=== PATIENT | male | born 1930 | race Caucasian/White ===

== ENCOUNTER 2016-12-13 14:13 | Inpatient (IN) | payer OTHER ==
[~2016-12-13] VITALS: Ht 175.3 cm; Wt 69.5 kg
[2016-12-13 14:52] LABS: EOSINOPHIL (%) 0.7 % (0-5); EOSINOPHIL COUNT 0.1 K/uL (0-0.3); HEMATOCRIT 39.3 % (38.0-50.0); IMMATURE GRANULOCYTE (%) 0.1 % (0.0-0.7); IMMATURE GRANULOCYTE COUNT 0.1 K/uL; LYMPHOCYTE COUNT 0.9 K/uL (1.0-2.8); MCH 31.9 PG (29.0-34.0); MCHC 34.6 G/DL (30.0-36.0); MCV 92.3 FL (86-99); MEAN PLAT.VOLUME 10.7 uM^3 (9.0-12.4); MONOCYTE COUNT 0.5 K/uL (0-0.8); NEUTROPHIL (%) 81.9 % (45-76); NEUTROPHIL COUNT 6.6 K/uL (1.8-6.4); PLATELET COUNT 172 K/uL (156-360); RBC DIS.WIDTH-SD 45.7 % (39-53); RED BLOOD COUNT 4.26 M/uL (4.00-5.50)
[2016-12-13 15:04] LABS: CHLORIDE 98 mEq/L (99-109); POTASSIUM 4.7 mEq/L (3.7-5.4); SODIUM 133 mEq/L (136-147)
[2016-12-13 15:07] LABS: D-DIMER ELISA 0.54 mg/L FEU (< 0.57); GLUCOSE 141 mg/dL (70-99)
[2016-12-13 15:08] LABS: ANION GAP 11 MEQ/L (2-14)
[2016-12-13 15:09] LABS: TOTAL BILIRUBIN 0.7 mg/dL (0.0-1.0)
[2016-12-13 15:10] LABS: ALKALINE PHOSPHATASE 100 IU/L (3-129); GFR ESTIMATE (CALCULATED) > 59 mL/min/
[2016-12-13 15:11] LABS: UREA NITROGEN (BUN) 18 mg/dL (9-23)
[2016-12-13 15:21] LABS: TROP-I INTERPRETATION NEGATIVE; TROPONIN-I 0.01 ng/mL (0.0-0.30)
[2016-12-13] MEDS ORDERED: ASPIR 8181 M1 PO (16:03)
[2016-12-13] MEDS ORDERED: DAILY VITE1 EAC1 PO (16:04)
[2016-12-13] MEDS ORDERED: VITAMIN D2000 UNI1 PO (16:05)
[2016-12-13] MEDS ORDERED: ASCORBIC ACID500 M3 PO (16:05)
[2016-12-13] MEDS ORDERED: FISH OIL 11600 MG/5 PO (16:06)
[2016-12-13] MEDS ORDERED: VITAMIN E400 UNIT PO (16:06)
[2016-12-13] MEDS ORDERED: REFRESH TEARS15 ML BOTH EYES (16:07)
[2016-12-13 20:30] VITALS: BP 114/60
[2016-12-13 21:34] LABS: TROP-I INTERPRETATION NEGATIVE; TROPONIN-I 0.05 ng/mL (0.0-0.30)
[2016-12-13 23:36] VITALS: BP 78/44
[2016-12-13 23:45] VITALS: BP 80/52
[2016-12-14] VITALS (7 sets, daily range): BP systolic 105–149; BP diastolic 60–88
[2016-12-14 05:12] LABS: TROP-I INTERPRETATION NEGATIVE; TROPONIN-I 0.05 ng/mL (0.0-0.30)
[2016-12-14 08:23] LABS: EOSINOPHIL (%) 0.3 % (0-5); IMMATURE GRANULOCYTE (%) 0.2 % (0.0-0.7); LYMPHOCYTE COUNT 1.2 K/uL (1.0-2.8); MCH 31.4 PG (29.0-34.0); MCHC 34.7 G/DL (30.0-36.0); MCV 90.4 FL (86-99); MEAN PLAT.VOLUME 10.9 uM^3 (9.0-12.4); MONOCYTE (%) 12.5 % (3-12); MONOCYTE COUNT 1.2 K/uL (0-0.8); NEUTROPHIL (%) 74.4 % (45-76); NEUTROPHIL COUNT 7.2 K/uL (1.8-6.4); PLATELET COUNT 160 K/uL (156-360); RBC DIS.WIDTH-CV 13.8 % (11.8-14.6); RBC DIS.WIDTH-SD 45.5 % (39-53); RED BLOOD COUNT 3.76 M/uL (4.00-5.50); WHITE BLOOD COUNT 9.7 K/uL (4.1-10.2)
[2016-12-14 09:56] LABS: ANION GAP 7 MEQ/L (2-14); CHLORIDE 98 MEQ/L (99-109); GFR ESTIMATE (CALCULATED) > 59 mL/min/; GLUCOSE 121 mg/dL (70-99); POTASSIUM 4.1 MEQ/L (3.7-5.4); SAMPLE HEMOLYSIS CHECK 0; SAMPLE ICTERIC CHECK 0; SAMPLE LIPEMIA CHECK 0; SODIUM 129 MEQ/L (136-147); UREA NITROGEN (BUN) 19 mg/dL (9-23)
[2016-12-15 03:53] VITALS: BP 102/61
[2016-12-15 07:00] LABS: EOSINOPHIL (%) 0.5 % (0-5); IMMATURE GRANULOCYTE (%) 0.1 % (0.0-0.7); LYMPHOCYTE COUNT 1.4 K/uL (1.0-2.8); MCH 31.2 PG (29.0-34.0); MCHC 34.2 G/DL (30.0-36.0); MCV 91.4 FL (86-99); MEAN PLAT.VOLUME 11.9 uM^3 (9.0-12.4); MONOCYTE (%) 14.5 % (3-12); MONOCYTE COUNT 1.1 K/uL (0-0.8); NEUTROPHIL (%) 66.3 % (45-76); PLATELET COUNT 164 K/uL (156-360); RBC DIS.WIDTH-CV 14.2 % (11.8-14.6); RBC DIS.WIDTH-SD 47.7 % (39-53); RED BLOOD COUNT 3.94 M/uL (4.00-5.50); WHITE BLOOD COUNT 7.6 K/uL (4.1-10.2)
[2016-12-15 07:26] LABS: ANION GAP 8 MEQ/L (2-14); CHLORIDE 98 MEQ/L (99-109); GFR ESTIMATE (CALCULATED) > 59 mL/min/; GLUCOSE 102 mg/dL (70-99); SAMPLE HEMOLYSIS CHECK 0; SAMPLE ICTERIC CHECK 0; SAMPLE LIPEMIA CHECK 0; SODIUM 129 MEQ/L (136-147); UREA NITROGEN (BUN) 13 mg/dL (9-23)
[2016-12-15 08:05] LABS: Estimated Average Glucose 126 mg/dL (70-123)
[2016-12-15 08:55] VITALS: BP 137/85
[2016-12-15 13:59] VITALS: BP 142/75
[2016-12-15 16:06] VITALS: BP 129/84
[2016-12-15 19:00] VITALS: BP 124/76
[2016-12-16] VITALS: BP 114/70
[2016-12-16 04:00] VITALS: BP 111/74
[2016-12-16] MEDS ORDERED: XARELTO20 MG PO (08:38)
[2016-12-16] MEDS ORDERED: LOPRESSOR25 MG PO (08:38)
[2016-12-16 09:07] VITALS: BP 142/92
== END 2016-12-16 12:00 | disposition home or self-care (01) | DRG 313 ==
LOC: EME 14:13 → EDOF 19:22 → 5WEST 20:13
PROVIDERS: Emergency Medicine; Family Medicine; Internal Medicine
DX: R07.2 Precordial pain (principal); I95.9 Hypotension, unspecified; I27.2 Other secondary pulmonary hypertension; E10.65 Type 1 diabetes mellitus with hyperglycemia; I48.0 Paroxysmal atrial fibrillation; E87.1 Hypo-osmolality and hyponatremia; R06.02 Shortness of breath; Z79.01 Long term (current) use of anticoagulants
CPT/HCPCS: 71010; 78452; 80048; 80053; 83036; 83880; 84484; 85025; 85027; 85379; 85730; 93005; 93017; 93306; 94799; 99281; 99285; A9500; G0378; J2270; J2405; J2785; J7030; J7040